=== PATIENT | male | born 1990 | race Caucasian/White ===

== ENCOUNTER 2024-08-04 10:03 | Emergency (ER) | payer OTHER ==
[~2024-08-04] VITALS: Ht 190.5 cm; Wt 104.3 kg
[2024-08-04] MEDS ORDERED: FAMOTIDINE/PF INJ 20 MG/2 ML VIAL IV ONE (10:29)
[2024-08-04] MEDS ORDERED: PANTOPRAZOLE 40 MG VIAL ONE (10:29)
[2024-08-04] MEDS: FAMOTIDINE/PF INJ 20 MG/2 ML VIAL IV ONE (10:39)
[2024-08-04] MEDS: IV NS 0.9% 1,000 ML BAG IV ONE (10:39)
[2024-08-04] MEDS: PANTOPRAZOLE 40 MG VIAL IV ONE (10:39)
[2024-08-04 10:41] LABS: BASOPHILS % (AUTO) 0.7 % (0.0-2.0); EOSINOPHILS # (AUTO) 0.1 K/uL (0.0-0.7); EOSINOPHILS % (AUTO) 1.7 % (0.0-6.0); HEMATOCRIT 43 % (39-51); HEMOGLOBIN 14.6 g/dL (13.5-17.5); LYMPHOCYTES # (AUTO) 1.9 K/uL (0.8-4.8); LYMPHOCYTES % (AUTO) 31.7 % (20.0-44.0); MEAN CORPUSCULAR HEMOGLOBIN 29 PG (26.0-33.0); MEAN CORPUSCULAR HGB CONC 34 g/dl (31.0-36.0); MEAN CORPUSCULAR VOLUME 87 fL (80-96); MONOCYTES # (AUTO) 0.4 K/uL (0.1-1.30); MONOCYTES % (AUTO) 6.5 % (2.0-12.0); NEUTROPHILS # (AUTO) 3.6 K/uL (1.8-8.9); NEUTROPHILS % (AUTO) 59.4 % (43.0-81.0); PLATELET COUNT (AUTO) 195 K/uL (150-450); RED BLOOD CELL COUNT(AUTO) 4.99 MIL/uL (4.5-6.0); RED CELL DISTRIBUTION WIDTH 14.1 % (11.5-15.0); WHITE BLOOD COUNT (AUTO) 6.1 K/uL (4.3-11.0)
[2024-08-04 10:55] LABS: ALBUMIN 3.8 g/dL (3.4-5.0); BILIRUBIN,DIRECT 0.1 mg/dL (0.0-0.2); BILIRUBIN,TOTAL 0.2 mg/dL (0.2-1.0); CALCIUM, SERUM 8.6 mg/dL (8.5-10.1); CREATININE 0.8 mg/dL (0.6-1.3); POTASSIUM 3.7 mmol/L (3.5-5.1); TOTAL PROTEIN, SERUM 8.4 g/dL (6.4-8.2)
[2024-08-04 11:01] LABS: INR 1.01 (0.91-1.10); PARTIAL THROMBOPLASTIN TIME 28.2 SEC (24.3-34.3); PROTHROMBIN TIME 10.7 SECS (9.2-11.1)
[2024-08-04] MEDS ORDERED: FAMO-131 PO (11:20)
[2024-08-04 11:55] VITALS: BP 143/84; TEMP 98.1; O2SAT 100
== END 2024-08-04 11:56 | disposition home or self-care (01) ==
LOC: ER 10:13
DX: K29.20 Alcoholic gastritis without bleeding (principal); K22.6 Gastro-esophageal laceration-hemorrhage syndrome
CPT/HCPCS: 99284; 96374; 96361; 96375; 85025; 80048; 80076; 36415; 85730; 86850; J1308; J7030; J2470